=== PATIENT | female | born 1970 | race Caucasian/White ===

== ENCOUNTER 2019-03-10 17:20 | Emergency (ER) | payer OTHER ==
[~2019-03-10] VITALS: Ht 170.2 cm; Wt 88.5 kg
--- NOTE | 2019-03-10 17:40 | NUR ---
Pt ambulated to bed 2
[2019-03-10 17:45] VITALS: BP_SYST 152
--- NOTE | 2019-03-10 18:10 | NUR ---
ER Dr. Washburn at bedside examining patient.
--- NOTE | 2019-03-10 18:15 | NUR ---
Patient presented to ERwith pain to right knee and lower leg. Patient AA&Ox4, afebrile, respirations equal bilat, pain 6/10, bruising to right knee, lower leg and ankle. Patient states she had a fall at work 02/28/19, was sent to [facility] on 03/01/19 but pain continues and bruising has increased prompting ER visit today
--- NOTE | 2019-03-10 19:20 | NUR ---
Report given to Antony SIMS
[2019-03-10 19:35] VITALS: BP_SYST 148
--- NOTE | 2019-03-10 19:35 | NUR ---
Patient given written and verbal discharge instructions and verbalizes understanding. ER MD discussed with patient the results and treatment provided. Patient in stable condition. ID arm band removed. Patient educated on pain management and to follow up with PMD. Pain Scale 0/10. Opportunity for questions provided and answered.
== END 2019-03-10 19:35 | disposition home or self-care (01) ==
LOC: SED 17:20
DX: S80.01XA Contusion of right knee, initial encounter (principal); S90.01XA Contusion of right ankle, initial encounter; R60.0 Localized edema; W01.0XXA Fall on same level from slipping, tripping and stumbling without subsequent striking against object, initial encounter; Y93.89 Activity, other specified; Y92.69 Other specified industrial and construction area as the place of occurrence of the external cause; Y99.8 Other external cause status
CPT/HCPCS: 93971; 99284